=== PATIENT | male | born 1935 | race Caucasian/White ===

== ENCOUNTER 2022-05-28 22:37 | Emergency (ER) | payer OTHER ==
[~2022-05-28] VITALS: Ht 170.2 cm; Wt 61.2 kg
--- NOTE | 2022-05-28 22:55 | NUR ---
[id number] FROM [facility] C/O DARK URINE IN F/C, NO PAIN, HAD IFC 2 WEEKS AGO. PLACED COMFORTABLY IN BED. PT IS AAOX4. VITALS CHECKED.
--- NOTE | 2022-05-28 23:30 | NUR ---
URINE SPECIMEN SENT TO LAB
--- NOTE | 2022-05-29 00:28 | NUR ---
BLADDER IRRIGATION DONE. ABLE TO OBTAIN BLOOD TINGED URINE.
[2022-05-29 00:39] LABS: BILIRUBIN,URINE NEGATIVE (NEGATIVE); COLOR,URINE YELLOW (YELLOW); LEUKOCYTE ESTERASE ,URINE LARGE (NEGATIVE); NITRITE, URINE POSITIVE (NEGATIVE); PH,URINE 8.5 (5.0-8.0); PROTEIN,URINE 30 mg/dl (NEGATIVE); UGLUCOSE NEGATIVE (NEGATIVE); UROBILINOGEN,URINE 0.2 EU/dL (0.2)
[2022-05-29 00:59] LABS: BACTERIA,URINE Many /HPF (None Seen); SQUAMOUS EPITHELIAL CELL,UR Few /HPF (None Seen)
[2022-05-29 02:17] LABS: BILIRUBIN,URINE NEGATIVE (NEGATIVE); COLOR,URINE YELLOW (YELLOW); LEUKOCYTE ESTERASE ,URINE LARGE (NEGATIVE); NITRITE, URINE POSITIVE (NEGATIVE); PH,URINE 8.5 (5.0-8.0); PROTEIN,URINE 30 mg/dl (NEGATIVE); UGLUCOSE NEGATIVE (NEGATIVE); UROBILINOGEN,URINE 0.2 EU/dL (0.2)
[2022-05-29 02:18] LABS: BACTERIA,URINE Few /HPF (None Seen); SQUAMOUS EPITHELIAL CELL,UR Few /HPF (None Seen)
[2022-05-29] MEDS ORDERED: CIPR500T5 PO (02:24)
[2022-05-29] MEDS ORDERED: CIPROFLOXACIN HCL 500 MG TABLET PO ONE (02:30)
[2022-05-29] MEDS ORDERED: CIPROFLOXACIN HCL 500 MG TABLET ONE (02:42)
--- NOTE | 2022-05-29 04:23 | NUR ---
[facility] FROM [place] [phone], WILL CALL US BACK AGAIN ONCE TRANSPORTATION IS ARRANGE.
--- NOTE | 2022-05-29 05:04 | NUR ---
REPORT GIVEN TO EMT KYLEE OF [id number].
--- NOTE | 2022-05-29 05:43 | NUR ---
TRANSFERRED TO FACILITY [facility]IA [facility]
[2022-05-29 05:44] VITALS: BP 131/71
== END 2022-05-29 05:44 ==
LOC: ER 22:47
DX: N39.0 Urinary tract infection, site not specified (principal); R31.9 Hematuria, unspecified; I10 Essential (primary) hypertension; Z79.899 Other long term (current) drug therapy
CPT/HCPCS: 99284; 51700; 87086; 81001 ×2; A4217; 87186-TC